=== PATIENT | male | born 1955 | race Caucasian/White ===

== ENCOUNTER 2020-06-20 09:59 | Inpatient (IN) ==
[2020-06-20 10:41] LABS: Basophils # 0.1 10*3/uL (0.0-0.2); Basophils % 0.7 % (0.0-0.8); Eosinophils # 0.1 10*3/uL (0.0-0.87); Eosinophils % 0.7 % (0.00-10.9); Hemoglobin 9.9 GM/DL (14.0-18.0); Immature Granulocytes % 0.5 %; Immature Granulocytes Absolute 0.05 #; Lymphocytes # 0.8 10*3/uL (1.4-4.0); Mean Corpuscular Volume 83.8 FL (87-102); Mean Platelet Volume 11.1 FL (9.6-12.0); Neutrophils % 86.1 % (38.7-73.9); Platelet Count 252 T/CUMM (130-400); Red Blood Count 3.94 MC/CUMM (3.8-5.5); Red Cell Distribution Width 21.2 % (9.3-17.3); White Blood Count 10.4 T/CUMM (4-12)
[2020-06-20 10:51] LABS: INR 2.3; PT Patient Result 24.5 SECS (10.5-12.0)
[2020-06-20 11:11] LABS: Albumin 3.2 G/DL (3.4-5.0); Bilirubin,Total 1.9 MG/DL (0.2-1.0); Osmolality,Calculated 311.4 MOS/KG (273-304); Potassium 3.9 MMOL/L (3.5-5.1); Total Protein 7.8 G/DL (6.4-8.2)
[2020-06-20] MEDS ORDERED: GLUCAGON 1 MG VIAL IM PRN (12:10)
[2020-06-20] MEDS ORDERED: DEXTROSE 50% 25 GM/50 ML VIAL IV PRN (12:10)
[2020-06-20] MEDS: FUROSEMIDE 40 MG/4 ML VIAL IV SCH (16:37)
[2020-06-20] MEDS: INSULIN LISPRO 100 UNIT/ML SUBCUT SCH (16:37)
[2020-06-20] MEDS: ASPIRIN EC 81 MG TABLET PO SCH (23:30)
[2020-06-20] MEDS: RIVAROXABAN 15 MG TABLET PO SCH (23:30)
[2020-06-21] MEDS: INSULIN LISPRO 100 UNIT/ML SUBCUT SCH ×5 (00:06→22:38)
[2020-06-21 05:49] LABS: Basophils # 0.1 10*3/uL (0.0-0.2); Basophils % 0.8 % (0.0-0.8); Eosinophils # 0.1 10*3/uL (0.0-0.87); Eosinophils % 1.6 % (0.00-10.9); Hematocrit 28.8 VOL% (42.0-52.0); Hemoglobin 8.7 GM/DL (14.0-18.0); Immature Granulocytes % 0.3 %; Immature Granulocytes Absolute 0.03 #; Lymphocytes % 11.3 % (21.2-54.2); Mean Corpuscular HGB Conc 30.2 GM/DL (32-36); Mean Corpuscular Volume 83.5 FL (87-102); Mean Platelet Volume 10.2 FL (9.6-12.0); Monocytes % 5.9 % (1.7-12.7); Neutrophils % 80.1 % (38.7-73.9); Platelet Count 210 T/CUMM (130-400); Red Blood Count 3.45 MC/CUMM (3.8-5.5); White Blood Count 8.7 T/CUMM (4-12)
[2020-06-21 05:54] LABS: INR 2.4; PT Patient Result 25.3 SECS (10.5-12.0); Partial Thromboplastin Time 55.5 SECS (23.9-33.8)
[2020-06-21 06:10] LABS: Calcium 8.9 MG/DL (8.5-10.1); Osmolality,Calculated 311.2 MOS/KG (273-304); Potassium 3.1 MMOL/L (3.5-5.1); Risk Ratio 2.33; VLDL CHOLESTEROL 14.2 MG/DL
[2020-06-21] MEDS ORDERED: POTASSIUM CHLORIDE 20 MEQ TABLET PO ONE (07:10)
[2020-06-21] MEDS: FUROSEMIDE 40 MG/4 ML VIAL IV SCH ×2 (08:41→16:36)
[2020-06-21] MEDS: metOLazone 5 MG TABLET PO SCH (08:41)
[2020-06-21] MEDS: PANTOPRAZOLE 40 MG TABLET PO SCH (08:41)
[2020-06-21] MEDS ORDERED: POTASSIUM CHLORIDE 20 MEQ TABLET PO SCH (09:00)
[2020-06-21] MEDS ORDERED: MILRINONE 20 MG/100 ML PREMIX IV SCH ×2 (15:30→18:00)
[2020-06-21] MEDS ORDERED: carvediloL 3.125 MG TABLET PO SCH (17:00)
[2020-06-21] MEDS: ASPIRIN EC 81 MG TABLET PO SCH (22:27)
[2020-06-21] MEDS: RIVAROXABAN 15 MG TABLET PO SCH (22:27)
[2020-06-22 05:21] LABS: Basophils # 0.1 10*3/uL (0.0-0.2); Basophils % 0.7 % (0.0-0.8); Eosinophils # 0.1 10*3/uL (0.0-0.87); Eosinophils % 1.3 % (0.00-10.9); Hematocrit 28.3 VOL% (42.0-52.0); Hemoglobin 8.5 GM/DL (14.0-18.0); Immature Granulocytes % 0.4 %; Immature Granulocytes Absolute 0.04 #; Lymphocytes % 10.3 % (21.2-54.2); Mean Platelet Volume 10.1 FL (9.6-12.0); Neutrophils % 80.3 % (38.7-73.9); Platelet Count 209 T/CUMM (130-400); Red Blood Count 3.37 MC/CUMM (3.8-5.5); Red Cell Distribution Width 20.9 % (9.3-17.3); White Blood Count 9.4 T/CUMM (4-12)
[2020-06-22 05:44] LABS: Osmolality,Calculated 312.4 MOS/KG (273-304); Potassium 3.3 MMOL/L (3.5-5.1)
[2020-06-22] MEDS: POTASSIUM CHLORIDE 20 MEQ TABLET PO SCH ×2 (08:56→22:09)
[2020-06-22] MEDS: metOLazone 5 MG TABLET PO SCH (08:56)
[2020-06-22] MEDS: FUROSEMIDE 40 MG/4 ML VIAL IV SCH ×2 (08:56→16:27)
[2020-06-22] MEDS: PANTOPRAZOLE 40 MG TABLET PO SCH (08:56)
[2020-06-22] MEDS: INSULIN LISPRO 100 UNIT/ML SUBCUT SCH ×5 (09:10→22:45)
[2020-06-22] MEDS ORDERED: METOPROLOL SUCCINATE XL 25 MG TABLET PO SCH (12:30)
[2020-06-22] MEDS: ASPIRIN EC 81 MG TABLET PO SCH (22:09)
[2020-06-22] MEDS: RIVAROXABAN 15 MG TABLET PO SCH (22:09)
[2020-06-23 05:34] LABS: Basophils # 0.1 10*3/uL (0.0-0.2); Basophils % 0.7 % (0.0-0.8); Eosinophils # 0.2 10*3/uL (0.0-0.87); Eosinophils % 2.2 % (0.00-10.9); Hematocrit 29.5 VOL% (42.0-52.0); Immature Granulocytes % 0.5 %; Immature Granulocytes Absolute 0.05 #; Lymphocytes # 0.9 10*3/uL (1.4-4.0); Lymphocytes % 8.6 % (21.2-54.2); Mean Corpuscular HGB Conc 30.5 GM/DL (32-36); Mean Corpuscular Volume 81.9 FL (87-102); Mean Platelet Volume 10.5 FL (9.6-12.0); Monocytes % 8.8 % (1.7-12.7); Neutrophils % 79.2 % (38.7-73.9); Platelet Count 197 T/CUMM (130-400); Red Cell Distribution Width 20.9 % (9.3-17.3); White Blood Count 9.9 T/CUMM (4-12)
[2020-06-23 05:44] LABS: Calcium 8.7 MG/DL (8.5-10.1); Osmolality,Calculated 314.4 MOS/KG (273-304); Potassium 3.6 MMOL/L (3.5-5.1)
[2020-06-23 05:47] LABS: Albumin 2.8 G/DL (3.4-5.0); Bilirubin,Direct 0.77 MG/DL (0.0-0.20); Bilirubin,Indirect 0.5 MG/DL (0.0-1.0); Bilirubin,Total 1.3 MG/DL (0.2-1.0); Total Protein 7.3 G/DL (6.4-8.2)
[2020-06-23 06:36] LABS: Hepatitis B Core IgM Quant 0.11 Index; Hepatitis B Surface Ag Quant < 0.10 Index; Hepatitis B Surface Ag Result Non-Reactive (NonReactive); Hepatitis C Virus Ab Quant 0.26 Index; Hepatitis C Virus Ab Result Non-Reactive (NonReactive)
[2020-06-23] MEDS: POTASSIUM CHLORIDE 20 MEQ TABLET PO SCH ×2 (08:25→20:57)
[2020-06-23] MEDS: PANTOPRAZOLE 40 MG TABLET PO SCH (08:25)
[2020-06-23] MEDS: INSULIN LISPRO 100 UNIT/ML SUBCUT SCH ×4 (08:49→20:56)
[2020-06-23] MEDS ORDERED: HEPARIN/NACL 0.9% 2 UNITS/ML 1,000 UNIT/500 ML BAG IV ONE (09:51)
[2020-06-23] MEDS: DOBUTamine 500 MG/250 ML PREMIX IV PRN ×2 (11:09→18:51)
[2020-06-23] MEDS: METOPROLOL SUCCINATE XL 25 MG TABLET PO SCH (12:10)
[2020-06-23] MEDS ORDERED: BENZONATATE 100 MG CAPSULE PO PRN (12:13)
[2020-06-23 15:00] LABS: Hepatitis B Core IgM Quant 0.11 Index; Hepatitis B Surface Ag Quant < 0.10 Index; Hepatitis B Surface Ag Result Non-Reactive (NonReactive); Hepatitis C Virus Ab Quant 0.19 Index; Hepatitis C Virus Ab Result Non-Reactive (NonReactive)
[2020-06-23] MEDS: FUROSEMIDE 40 MG/4 ML VIAL IV SCH (18:00)
[2020-06-23] MEDS: DESITIN 4OZ/NYSTATIN 15 GRAM MIXTURE PASTE TOP SCH ×2 (18:33→22:03)
[2020-06-23] MEDS: ASPIRIN EC 81 MG TABLET PO SCH (20:57)
[2020-06-23] MEDS ORDERED: NON-FORMULARY MEDICATION (Liraglutide [Victoza 3-Pak] 0.6 mg/0.1 mL (18 mg/3 mL) Pen Injec SUBCUT SCH (21:00)
[2020-06-24] MEDS: DOBUTamine 500 MG/250 ML PREMIX IV PRN ×3 (01:55→17:07)
[2020-06-24 06:22] LABS: Basophils % 0.5 % (0.0-0.8); Eosinophils # 0.1 10*3/uL (0.0-0.87); Eosinophils % 0.8 % (0.00-10.9); Hematocrit 26.8 VOL% (42.0-52.0); Immature Granulocytes % 0.5 %; Immature Granulocytes Absolute 0.04 #; Lymphocytes # 0.6 10*3/uL (1.4-4.0); Mean Corpuscular HGB Conc 29.9 GM/DL (32-36); Mean Corpuscular Volume 83.8 FL (87-102); Mean Platelet Volume 10.2 FL (9.6-12.0); Monocytes % 4.3 % (1.7-12.7); Neutrophils % 86.9 % (38.7-73.9); Platelet Count 175 T/CUMM (130-400); Red Cell Distribution Width 21.1 % (9.3-17.3); White Blood Count 8.4 T/CUMM (4-12)
[2020-06-24 06:41] LABS: Albumin 2.6 G/DL (3.4-5.0); Bilirubin,Total 1.3 MG/DL (0.2-1.0); Calcium 8.2 MG/DL (8.5-10.1); Osmolality,Calculated 313.7 MOS/KG (273-304); Potassium 3.8 MMOL/L (3.5-5.1); Total Protein 6.8 G/DL (6.4-8.2)
[2020-06-24] MEDS ORDERED: ETOMIDATE 40 MG/20 ML VIAL IV ONE (06:47)
[2020-06-24] MEDS ORDERED: propofoL 200 MG/20 ML VIAL IV ONE (06:47)
[2020-06-24] MEDS ORDERED: LIDOCAINE 2% 5 ML VIAL ONE (06:47)
[2020-06-24] MEDS ORDERED: MIDAZOLAM 2 MG/2 ML VIAL ONE (06:48)
[2020-06-24] MEDS ORDERED: fentaNYL 100 MCG/2 ML VIAL ONE (06:48)
[2020-06-24] MEDS ORDERED: KETAMINE 500 MG/10 ML VIAL ONE (06:54)
[2020-06-24] MEDS ORDERED: ceFAZolin 1,000 MG VIAL ONE (07:51)
[2020-06-24] MEDS: INSULIN LISPRO 100 UNIT/ML SUBCUT SCH ×4 (07:55→21:26)
[2020-06-24] MEDS ORDERED: ONDANSETRON 4 MG/2 ML VIAL IV PRN (08:26)
[2020-06-24] MEDS: ONDANSETRON 4 MG/2 ML VIAL IV PRN (08:28)
[2020-06-24] MEDS: POTASSIUM CHLORIDE 20 MEQ TABLET PO SCH ×2 (10:06→21:26)
[2020-06-24] MEDS: DESITIN 4OZ/NYSTATIN 15 GRAM MIXTURE PASTE TOP SCH (10:06)
[2020-06-24] MEDS: PANTOPRAZOLE 40 MG TABLET PO SCH (10:06)
[2020-06-24] MEDS: FUROSEMIDE 40 MG/4 ML VIAL IV SCH (10:07)
[2020-06-24] MEDS: METOPROLOL SUCCINATE XL 25 MG TABLET PO SCH (10:07)
[2020-06-24] MEDS ORDERED: ALBUMIN 25% 25 GM/100 ML VIAL IV ONE (10:31)
[2020-06-24] MEDS ORDERED: HEPARIN 10,000 UNIT/10 ML VIAL IV PRN (12:22)
[2020-06-24] MEDS: ASPIRIN EC 81 MG TABLET PO SCH (21:26)
[2020-06-25] MEDS: DOBUTamine 500 MG/250 ML PREMIX IV PRN ×4 (01:39→10:01)
[2020-06-25] MEDS: ONDANSETRON 4 MG/2 ML VIAL IV PRN (02:57)
[2020-06-25] MEDS: DESITIN 4OZ/NYSTATIN 15 GRAM MIXTURE PASTE TOP SCH ×3 (03:01→21:28)
[2020-06-25 04:04] LABS: Basophils % 0.3 % (0.0-0.8); Eosinophils # 0.1 10*3/uL (0.0-0.87); Eosinophils % 1.3 % (0.00-10.9); Hematocrit 25.2 VOL% (42.0-52.0); Hemoglobin 7.7 GM/DL (14.0-18.0); Immature Granulocytes % 0.4 %; Immature Granulocytes Absolute 0.03 #; Lymphocytes # 0.3 10*3/uL (1.4-4.0); Lymphocytes % 4.2 % (21.2-54.2); Mean Corpuscular HGB Conc 30.6 GM/DL (32-36); Mean Corpuscular Volume 83.7 FL (87-102); Mean Platelet Volume 9.9 FL (9.6-12.0); Monocytes % 3.7 % (1.7-12.7); Neutrophils % 90.1 % (38.7-73.9); Platelet Count 144 T/CUMM (130-400); Red Blood Count 3.01 MC/CUMM (3.8-5.5); Red Cell Distribution Width 20.9 % (9.3-17.3); White Blood Count 7.6 T/CUMM (4-12)
[2020-06-25 05:08] LABS: Calcium 8.4 MG/DL (8.5-10.1); Osmolality,Calculated 311.4 MOS/KG (273-304)
[2020-06-25 07:05] LABS: Eosinophils 2 % (0-10); Hypochromasia 2+; Lymphocytes 5 % (20-55); Microcytosis 1+; Segmented Neutrophils 93 % (50-85); Total Cells Counted 100
[2020-06-25 07:06] LABS: Platelet Estimate Adequate
[2020-06-25] MEDS: INSULIN LISPRO 100 UNIT/ML SUBCUT SCH ×4 (08:32→21:25)
[2020-06-25] MEDS: PANTOPRAZOLE 40 MG TABLET PO SCH (08:33)
[2020-06-25] MEDS ORDERED: ALBUMIN 25% 12.5 GM/50 ML VIAL IV ONE ×3 (08:56→17:53)
[2020-06-25] MEDS ORDERED: DOBUTamine 500 MG/250 ML PREMIX IV SCH (14:30)
[2020-06-25] MEDS: NOREPINEPHRINE 8 MG in SODIUM CHLORIDE 0.9% 242 ML IV PRN (19:48)
[2020-06-25] MEDS: ASPIRIN EC 81 MG TABLET PO SCH (21:28)
[2020-06-26 05:12] LABS: Basophils % 0.2 % (0.0-0.8); Eosinophils # 0.1 10*3/uL (0.0-0.87); Eosinophils % 0.6 % (0.00-10.9); Hematocrit 28.8 VOL% (42.0-52.0); Hemoglobin 8.4 GM/DL (14.0-18.0); Immature Granulocytes % 0.6 %; Immature Granulocytes Absolute 0.05 #; Lymphocytes # 0.4 10*3/uL (1.4-4.0); Lymphocytes % 4.4 % (21.2-54.2); Mean Corpuscular HGB Conc 29.2 GM/DL (32-36); Mean Corpuscular Volume 85.5 FL (87-102); Mean Platelet Volume 10.2 FL (9.6-12.0); Monocytes % 3.9 % (1.7-12.7); Neutrophils % 90.3 % (38.7-73.9); Platelet Count 170 T/CUMM (130-400); Red Blood Count 3.37 MC/CUMM (3.8-5.5); Red Cell Distribution Width 21.2 % (9.3-17.3); White Blood Count 9.1 T/CUMM (4-12)
[2020-06-26 05:43] LABS: Albumin 3.1 G/DL (3.4-5.0); Bilirubin,Total 2.3 MG/DL (0.2-1.0); Calcium 8.8 MG/DL (8.5-10.1); Osmolality,Calculated 299.4 MOS/KG (273-304); Potassium 4.6 MMOL/L (3.5-5.1); Total Protein 7.3 G/DL (6.4-8.2)
[2020-06-26] MEDS: INSULIN LISPRO 100 UNIT/ML SUBCUT SCH ×4 (08:22→21:05)
[2020-06-26] MEDS: PANTOPRAZOLE 40 MG TABLET PO SCH (08:22)
[2020-06-26] MEDS: DESITIN 4OZ/NYSTATIN 15 GRAM MIXTURE PASTE TOP SCH ×2 (08:22→21:05)
[2020-06-26] MEDS ORDERED: POLYETHYLENE GLYCOL POWDER 17 GM PACK PO PRN (09:19)
[2020-06-26] MEDS: NOREPINEPHRINE 8 MG in SODIUM CHLORIDE 0.9% 242 ML IV PRN (10:01)
[2020-06-26 10:34] LABS: Eosinophils 1 % (0-10); Lymphocytes 7 % (20-55); Platelet Estimate Normal; Segmented Neutrophils 88 % (50-85); Total Cells Counted 100
[2020-06-26 10:37] LABS: Anisocytosis Slight
[2020-06-26] MEDS: RIVAROXABAN 15 MG TABLET PO SCH (21:02)
[2020-06-26] MEDS: ASPIRIN EC 81 MG TABLET PO SCH (21:03)
[2020-06-27] MEDS: NOREPINEPHRINE 8 MG in SODIUM CHLORIDE 0.9% 242 ML IV PRN ×2 (01:07→13:01)
[2020-06-27 04:29] LABS: Basophils % 0.3 % (0.0-0.8); Eosinophils # 0.1 10*3/uL (0.0-0.87); Eosinophils % 0.6 % (0.00-10.9); Hematocrit 30.4 VOL% (42.0-52.0); Hemoglobin 8.9 GM/DL (14.0-18.0); Immature Granulocytes % 0.6 %; Immature Granulocytes Absolute 0.05 #; Lymphocytes # 0.7 10*3/uL (1.4-4.0); Lymphocytes % 8.2 % (21.2-54.2); Mean Corpuscular HGB Conc 29.3 GM/DL (32-36); Mean Corpuscular Volume 86.1 FL (87-102); Mean Platelet Volume 10.7 FL (9.6-12.0); Monocytes % 5.4 % (1.7-12.7); Neutrophils % 84.9 % (38.7-73.9); Platelet Count 181 T/CUMM (130-400); Red Blood Count 3.53 MC/CUMM (3.8-5.5); Red Cell Distribution Width 21.2 % (9.3-17.3); White Blood Count 8.9 T/CUMM (4-12)
[2020-06-27 05:00] LABS: Calcium 8.5 MG/DL (8.5-10.1); Osmolality,Calculated 301.5 MOS/KG (273-304); Potassium 4.9 MMOL/L (3.5-5.1)
[2020-06-27] MEDS: INSULIN LISPRO 100 UNIT/ML SUBCUT SCH ×4 (09:00→20:41)
[2020-06-27] MEDS: PANTOPRAZOLE 40 MG TABLET PO SCH (09:08)
[2020-06-27] MEDS: MIDODRINE 5 MG TABLET PO SCH ×2 (09:08→21:13)
[2020-06-27] MEDS: DESITIN 4OZ/NYSTATIN 15 GRAM MIXTURE PASTE TOP SCH ×2 (09:09→21:19)
[2020-06-27] MEDS ORDERED: ALBUMIN 25% 25 GM/100 ML VIAL IV SCH (15:30)
[2020-06-27] MEDS: RIVAROXABAN 15 MG TABLET PO SCH (21:13)
[2020-06-27] MEDS: ASPIRIN EC 81 MG TABLET PO SCH (21:13)
[2020-06-28] MEDS: NOREPINEPHRINE 8 MG in SODIUM CHLORIDE 0.9% 242 ML IV PRN ×3 (00:42→21:14)
[2020-06-28 05:44] LABS: Basophils % 0.2 % (0.0-0.8); Eosinophils # 0.1 10*3/uL (0.0-0.87); Eosinophils % 0.7 % (0.00-10.9); Hematocrit 28.9 VOL% (42.0-52.0); Hemoglobin 8.8 GM/DL (14.0-18.0); Immature Granulocytes % 0.7 %; Immature Granulocytes Absolute 0.07 #; Lymphocytes # 0.9 10*3/uL (1.4-4.0); Lymphocytes % 9.4 % (21.2-54.2); Mean Corpuscular HGB Conc 30.4 GM/DL (32-36); Mean Platelet Volume 11.2 FL (9.6-12.0); Platelet Count 166 T/CUMM (130-400); Red Cell Distribution Width 20.9 % (9.3-17.3); White Blood Count 9.9 T/CUMM (4-12)
[2020-06-28 06:09] LABS: Albumin 3.2 G/DL (3.4-5.0); Bilirubin,Total 2.2 MG/DL (0.2-1.0); Calcium 8.8 MG/DL (8.5-10.1); Osmolality,Calculated 291.5 MOS/KG (273-304); Potassium 4.8 MMOL/L (3.5-5.1); Total Protein 7.1 G/DL (6.4-8.2)
[2020-06-28] MEDS: INSULIN LISPRO 100 UNIT/ML SUBCUT SCH ×4 (07:20→21:09)
[2020-06-28] MEDS: PANTOPRAZOLE 40 MG TABLET PO SCH (08:15)
[2020-06-28] MEDS: MIDODRINE 5 MG TABLET PO SCH ×3 (08:15→21:07)
[2020-06-28] MEDS: DESITIN 4OZ/NYSTATIN 15 GRAM MIXTURE PASTE TOP SCH ×2 (15:05→21:09)
[2020-06-28] MEDS: ASPIRIN EC 81 MG TABLET PO SCH (21:07)
[2020-06-28] MEDS: RIVAROXABAN 15 MG TABLET PO SCH (21:07)
[2020-06-29] MEDS: NOREPINEPHRINE 8 MG in SODIUM CHLORIDE 0.9% 242 ML IV PRN ×2 (03:56→14:53)
[2020-06-29] MEDS ORDERED: HEPARIN/NACL 0.9% 2 UNITS/ML 1,000 UNIT/500 ML BAG IV ONE (05:14)
[2020-06-29 05:59] LABS: Albumin 3.1 G/DL (3.4-5.0); Bilirubin,Total 2.8 MG/DL (0.2-1.0); Calcium 8.8 MG/DL (8.5-10.1); Osmolality,Calculated 298.5 MOS/KG (273-304); Potassium 4.9 MMOL/L (3.5-5.1); Total Protein 7.1 G/DL (6.4-8.2)
[2020-06-29] MEDS: DIGOXIN 0.5 MG/2 ML AMP IV SCH ×3 (06:53→18:15)
[2020-06-29] MEDS: INSULIN LISPRO 100 UNIT/ML SUBCUT SCH ×4 (07:56→21:45)
[2020-06-29] MEDS: MIDODRINE 5 MG TABLET PO SCH ×3 (09:21→21:45)
[2020-06-29] MEDS: PANTOPRAZOLE 40 MG TABLET PO SCH (09:21)
[2020-06-29] MEDS: FLUDROCORTISONE 0.1 MG TABLET PO SCH ×2 (09:21→21:45)
[2020-06-29] MEDS: DESITIN 4OZ/NYSTATIN 15 GRAM MIXTURE PASTE TOP SCH ×2 (09:22→21:46)
[2020-06-29] MEDS ORDERED: ALBUMIN 25% 12.5 GM/50 ML VIAL IV ONE ×2 (13:23→13:25)
[2020-06-29] MEDS: RIVAROXABAN 15 MG TABLET PO SCH (21:45)
[2020-06-29] MEDS: ASPIRIN EC 81 MG TABLET PO SCH (21:45)
[2020-06-30] MEDS: DIGOXIN 0.5 MG/2 ML AMP IV SCH (00:15)
[2020-06-30 04:42] LABS: Albumin 2.8 G/DL (3.4-5.0); Bilirubin,Total 1.6 MG/DL (0.2-1.0); Calcium 8.4 MG/DL (8.5-10.1); Osmolality,Calculated 295.1 MOS/KG (273-304); Potassium 4.3 MMOL/L (3.5-5.1); Total Protein 6.2 G/DL (6.4-8.2)
[2020-06-30] MEDS: INSULIN LISPRO 100 UNIT/ML SUBCUT SCH ×4 (07:44→21:38)
[2020-06-30] MEDS: DESITIN 4OZ/NYSTATIN 15 GRAM MIXTURE PASTE TOP SCH ×2 (09:56→21:50)
[2020-06-30] MEDS: FLUDROCORTISONE 0.1 MG TABLET PO SCH ×2 (09:56→21:40)
[2020-06-30] MEDS: MIDODRINE 5 MG TABLET PO SCH ×3 (09:56→21:40)
[2020-06-30] MEDS: PANTOPRAZOLE 40 MG TABLET PO SCH (09:56)
[2020-06-30] MEDS: FEBUXOSTAT 80 MG TABLET PO SCH (10:07)
[2020-06-30] MEDS ORDERED: DIGOXIN 0.125 MG TABLET PO ONE (10:30)
[2020-06-30] MEDS ORDERED: MAGNESIUM HYDROXIDE SUSP 30 ML UDCUP PO PRN (15:16)
[2020-06-30] MEDS: RIVAROXABAN 15 MG TABLET PO SCH (21:40)
[2020-06-30] MEDS: ASPIRIN EC 81 MG TABLET PO SCH (21:40)
[2020-07-01 06:12] LABS: Bilirubin,Total 1.5 MG/DL (0.2-1.0); Calcium 8.7 MG/DL (8.5-10.1); Osmolality,Calculated 293.5 MOS/KG (273-304); Potassium 4.5 MMOL/L (3.5-5.1); Total Protein 6.8 G/DL (6.4-8.2)
[2020-07-01] MEDS: INSULIN LISPRO 100 UNIT/ML SUBCUT SCH ×4 (08:45→22:13)
[2020-07-01] MEDS: FEBUXOSTAT 80 MG TABLET PO SCH (13:08)
[2020-07-01] MEDS: PANTOPRAZOLE 40 MG TABLET PO SCH (13:09)
[2020-07-01] MEDS: MIDODRINE 5 MG TABLET PO SCH ×3 (13:09→22:12)
[2020-07-01] MEDS: DESITIN 4OZ/NYSTATIN 15 GRAM MIXTURE PASTE TOP SCH (13:09)
[2020-07-01] MEDS: FLUDROCORTISONE 0.1 MG TABLET PO SCH ×2 (13:09→22:12)
[2020-07-01] MEDS: RIVAROXABAN 15 MG TABLET PO SCH (22:12)
[2020-07-01] MEDS: ASPIRIN EC 81 MG TABLET PO SCH (22:17)
[2020-07-02] MEDS: DESITIN 4OZ/NYSTATIN 15 GRAM MIXTURE PASTE TOP SCH ×3 (03:30→22:00)
[2020-07-02] MEDS: INSULIN LISPRO 100 UNIT/ML SUBCUT SCH ×4 (07:59→21:40)
[2020-07-02] MEDS: FEBUXOSTAT 80 MG TABLET PO SCH (09:48)
[2020-07-02] MEDS: PANTOPRAZOLE 40 MG TABLET PO SCH (09:48)
[2020-07-02] MEDS: MIDODRINE 5 MG TABLET PO SCH ×3 (09:48→21:40)
[2020-07-02] MEDS: FLUDROCORTISONE 0.1 MG TABLET PO SCH ×2 (09:48→21:40)
[2020-07-02] MEDS: ACETAMINOPHEN 325 MG TABLET PO PRN (09:53)
[2020-07-02] MEDS ORDERED: SIMETHICONE CHEW 125 MG TABLET PO PRN (11:41)
[2020-07-02] MEDS: DIGOXIN 0.125 MG TABLET PO SCH (12:38)
[2020-07-02] MEDS: ASPIRIN EC 81 MG TABLET PO SCH (21:40)
[2020-07-02] MEDS: RIVAROXABAN 15 MG TABLET PO SCH (21:40)
[2020-07-03] MEDS ORDERED: ALBUMIN 25% 50 GM/200 ML VIAL IV ONE (08:11)
[2020-07-03] MEDS: INSULIN LISPRO 100 UNIT/ML SUBCUT SCH ×3 (08:31→17:23)
[2020-07-03 08:38] LABS: Albumin 3.1 G/DL (3.4-5.0); Calcium 8.9 MG/DL (8.5-10.1); Osmolality,Calculated 291.2 MOS/KG (273-304); Potassium 4.6 MMOL/L (3.5-5.1)
[2020-07-03 08:39] LABS: Basophils # 0.1 10*3/uL (0.0-0.2); Basophils % 0.7 % (0.0-0.8); Eosinophils # 0.2 10*3/uL (0.0-0.87); Eosinophils % 2.2 % (0.00-10.9); Hemoglobin 8.3 GM/DL (14.0-18.0); Immature Granulocytes % 0.6 %; Immature Granulocytes Absolute 0.05 #; Lymphocytes # 0.5 10*3/uL (1.4-4.0); Mean Corpuscular HGB Conc 29.6 GM/DL (32-36); Mean Corpuscular Volume 86.2 FL (87-102); Mean Platelet Volume 10.4 FL (9.6-12.0); Monocytes % 5.2 % (1.7-12.7); Neutrophils % 85.3 % (38.7-73.9); Platelet Count 149 T/CUMM (130-400); Red Blood Count 3.25 MC/CUMM (3.8-5.5); Red Cell Distribution Width 21.7 % (9.3-17.3); White Blood Count 8.8 T/CUMM (4-12)
[2020-07-03] MEDS: FEBUXOSTAT 80 MG TABLET PO SCH (09:38)
[2020-07-03] MEDS: PANTOPRAZOLE 40 MG TABLET PO SCH (09:38)
[2020-07-03] MEDS: MIDODRINE 5 MG TABLET PO SCH ×3 (09:38→22:01)
[2020-07-03] MEDS: DESITIN 4OZ/NYSTATIN 15 GRAM MIXTURE PASTE TOP SCH ×2 (09:38→22:26)
[2020-07-03] MEDS: FLUDROCORTISONE 0.1 MG TABLET PO SCH ×2 (09:38→22:01)
[2020-07-03 10:32] LABS: Hypochromasia 2+; Microcytosis Slight
[2020-07-03 10:33] LABS: Platelet Estimate Adequate; Polychromasia Slight; Stomatocytes Slight; Target Cells Few
[2020-07-03] MEDS: ACETAMINOPHEN 325 MG TABLET PO PRN (15:00)
[2020-07-03] MEDS: ASPIRIN EC 81 MG TABLET PO SCH (22:01)
[2020-07-03] MEDS: RIVAROXABAN 15 MG TABLET PO SCH (22:01)
[2020-07-04 05:11] LABS: Basophils % 0.1 % (0.0-0.8); Hemoglobin 8.4 GM/DL (14.0-18.0); Immature Granulocytes % 2.5 %; Immature Granulocytes Absolute 0.68 #; Lymphocytes # 0.5 10*3/uL (1.4-4.0); Lymphocytes % 1.8 % (21.2-54.2); Mean Platelet Volume 10.3 FL (9.6-12.0); Monocytes % 2.4 % (1.7-12.7); Neutrophils % 93.2 % (38.7-73.9); Red Blood Count 3.22 MC/CUMM (3.8-5.5); Red Cell Distribution Width 21.8 % (9.3-17.3)
[2020-07-04 05:14] LABS: Platelet Count 115 T/CUMM (130-400); White Blood Count 27.6 T/CUMM (4-12)
[2020-07-04 05:31] LABS: Bilirubin,Total 1.2 MG/DL (0.2-1.0); Calcium 8.6 MG/DL (8.5-10.1); Osmolality,Calculated 293.2 MOS/KG (273-304); Potassium 4.7 MMOL/L (3.5-5.1)
[2020-07-04 05:45] LABS: Hypochromasia 1+; Lymphocytes 1 % (20-55); Microcytosis 1+; Platelet Estimate Decreased; Segmented Neutrophils 96 % (50-85); Total Cells Counted 100
[2020-07-04] MEDS: INSULIN LISPRO 100 UNIT/ML SUBCUT SCH ×5 (07:26→22:00)
[2020-07-04] MEDS ORDERED: ALBUMIN 25% 25 GM/100 ML VIAL IV ONE (10:30)
[2020-07-04 10:50] LABS: Basophils % 0.2 % (0.0-0.8); Hematocrit 27.7 VOL% (42.0-52.0); Hemoglobin 8.1 GM/DL (14.0-18.0); Immature Granulocytes % 0.7 %; Immature Granulocytes Absolute 0.15 #; Lymphocytes # 0.7 10*3/uL (1.4-4.0); Lymphocytes % 3.1 % (21.2-54.2); Mean Corpuscular HGB Conc 29.2 GM/DL (32-36); Mean Corpuscular Volume 88.2 FL (87-102); Monocytes % 2.8 % (1.7-12.7); Neutrophils % 93.2 % (38.7-73.9); Platelet Count 115 T/CUMM (130-400); Red Blood Count 3.14 MC/CUMM (3.8-5.5); Red Cell Distribution Width 21.8 % (9.3-17.3); White Blood Count 22.9 T/CUMM (4-12)
[2020-07-04 11:07] LABS: Band Neutrophils 1 % (0-10); Lymphocytes 3 % (20-55); Segmented Neutrophils 92 % (50-85); Total Cells Counted 100
[2020-07-04 11:08] LABS: Hypochromasia 1+
[2020-07-04 11:09] LABS: Microcytosis 1+
[2020-07-04] MEDS: MIDODRINE 5 MG TABLET PO SCH ×3 (12:19→22:14)
[2020-07-04] MEDS: DIGOXIN 0.125 MG TABLET PO SCH (13:36)
[2020-07-04] MEDS: FLUDROCORTISONE 0.1 MG TABLET PO SCH ×2 (13:36→22:13)
[2020-07-04] MEDS: PANTOPRAZOLE 40 MG TABLET PO SCH (13:36)
[2020-07-04] MEDS: FEBUXOSTAT 80 MG TABLET PO SCH (13:37)
[2020-07-04] MEDS: DESITIN 4OZ/NYSTATIN 15 GRAM MIXTURE PASTE TOP SCH ×2 (13:37→22:00)
[2020-07-04] MEDS: ASPIRIN EC 81 MG TABLET PO SCH (22:13)
[2020-07-04] MEDS: RIVAROXABAN 15 MG TABLET PO SCH (22:14)
[2020-07-04] MEDS: ACETAMINOPHEN 325 MG TABLET PO PRN (22:16)
[2020-07-05 05:33] LABS: Basophils % 0.1 % (0.0-0.8); Eosinophils % 0.2 % (0.00-10.9); Hematocrit 28.2 VOL% (42.0-52.0); Hemoglobin 8.4 GM/DL (14.0-18.0); Immature Granulocytes % 2.7 %; Immature Granulocytes Absolute 0.63 #; Lymphocytes # 0.2 10*3/uL (1.4-4.0); Lymphocytes % 0.9 % (21.2-54.2); Mean Corpuscular HGB Conc 29.8 GM/DL (32-36); Mean Platelet Volume 10.6 FL (9.6-12.0); Monocytes % 1.7 % (1.7-12.7); Neutrophils % 94.4 % (38.7-73.9); Platelet Count 107 T/CUMM (130-400); Red Blood Count 3.24 MC/CUMM (3.8-5.5); Red Cell Distribution Width 22.1 % (9.3-17.3); White Blood Count 23.3 T/CUMM (4-12)
[2020-07-05 05:53] LABS: Calcium 8.7 MG/DL (8.5-10.1); Osmolality,Calculated 286.2 MOS/KG (273-304); Potassium 4.5 MMOL/L (3.5-5.1); Total Protein 6.8 G/DL (6.4-8.2)
[2020-07-05 06:01] LABS: Band Neutrophils 1 % (0-10); Hypochromasia 1+; Lymphocytes 1 % (20-55); Microcytosis Slight; Platelet Estimate Decreased; Segmented Neutrophils 97 % (50-85); Total Cells Counted 100
[2020-07-05 07:57] VITALS: BP 80/38
[2020-07-05] MEDS: MIDODRINE 5 MG TABLET PO SCH ×3 (08:18→20:12)
[2020-07-05] MEDS: PANTOPRAZOLE 40 MG TABLET PO SCH (08:19)
[2020-07-05] MEDS: FEBUXOSTAT 80 MG TABLET PO SCH (08:20)
[2020-07-05] MEDS: DESITIN 4OZ/NYSTATIN 15 GRAM MIXTURE PASTE TOP SCH ×2 (08:20→20:12)
[2020-07-05] MEDS: FLUDROCORTISONE 0.1 MG TABLET PO SCH (08:20)
[2020-07-05] MEDS: INSULIN LISPRO 100 UNIT/ML SUBCUT SCH ×3 (08:21→17:46)
[2020-07-05 09:22] LABS: ABG Base Excess -1.3 MMOL/L (-2.5-2.5); ABG Oxygen Saturation 95.4 % (95-100); ABG PH 7.317 (7.35-7.45); ABG PO2 83.9 MM HG (80-95); ABG TCO2 26.5 MMOL/L (23-27); Allen Test Positive
[2020-07-05] MEDS ORDERED: NOREPINEPHRINE 4 MG/4 ML VIAL IV ONE ×2 (09:53→23:33)
[2020-07-05] MEDS ORDERED: ETOMIDATE 20 MG/10 ML VIAL IV ONE ×2 (10:01→10:08)
[2020-07-05] MEDS: HYDROCORTISONE 100 MG VIAL IV SCH ×2 (10:02→17:46)
[2020-07-05] MEDS: NOREPINEPHRINE 8 MG in SODIUM CHLORIDE 0.9% 242 ML IV PRN ×2 (10:02→23:37)
[2020-07-05] MEDS ORDERED: SUCCINYLCHOLINE 200 MG/10 ML VIAL ONE (10:03)
[2020-07-05] MEDS ORDERED: ALBUTEROL 2.5 MG/3 ML NEB RESP TX PRN (10:03)
[2020-07-05] MEDS ORDERED: MIDAZOLAM 100 MG in SODIUM CHLORIDE 0.9% 80 ML IV PRN (10:11)
[2020-07-05] MEDS ORDERED: INSULIN LISPRO 100 UNIT/ML SUBCUT SCH (10:30)
[2020-07-05] MEDS ORDERED: VANCOMYCIN INJ 2,500 MG in SODIUM CHLORIDE 0.9% 500 ML IV ONE (11:00)
[2020-07-05] MEDS: CEFEPIME 1,000 MG in SODIUM CHLORIDE 0.9% 100 ML IV SCH (11:17)
[2020-07-05 12:11] LABS: ABG Base Excess -3.7 MMOL/L (-2.5-2.5); ABG HCO3 22.2 MMOL/L (20-26); ABG Oxygen Saturation 99.6 % (95-100); ABG PCO2 43.7 MM HG (35-48); ABG PH 7.323 (7.35-7.45); ABG PO2 233.8 MM HG (80-95); ABG TCO2 23.5 MMOL/L (23-27); Allen Test Positive; Pt O2 Delivery Device Ventilator
[2020-07-05] MEDS ORDERED: VANCOMYCIN INJ 1,250 MG in SODIUM CHLORIDE 0.9% 250 ML IV PRN (12:57)
[2020-07-05] MEDS: LACTULOSE 20 GM/30 ML UDCUP PO SCH ×3 (13:59→21:00)
[2020-07-05] MEDS: ASPIRIN EC 81 MG TABLET PO SCH (20:12)
[2020-07-06] MEDS: INSULIN LISPRO 100 UNIT/ML SUBCUT SCH ×4 (00:56→18:09)
[2020-07-06] MEDS: LACTULOSE 20 GM/30 ML UDCUP PO SCH ×6 (02:57→21:11)
[2020-07-06] MEDS: HYDROCORTISONE 100 MG VIAL IV SCH ×3 (02:57→18:03)
[2020-07-06 04:15] LABS: ABG HCO3 21.9 MMOL/L (20-26); ABG Oxygen Saturation 98.1 % (95-100); ABG PCO2 42.1 MM HG (35-48); ABG PH 7.339 (7.35-7.45); ABG TCO2 21.1 MMOL/L (23-27); Allen Test Positive; Pt O2 Delivery Device Ventilator
[2020-07-06 05:42] LABS: Basophils # 0.1 10*3/uL (0.0-0.2); Basophils % 0.2 % (0.0-0.8); Hematocrit 27.3 VOL% (42.0-52.0); Hemoglobin 8.5 GM/DL (14.0-18.0); Immature Granulocytes % 5.6 %; Immature Granulocytes Absolute 1.64 #; Lymphocytes # 0.4 10*3/uL (1.4-4.0); Lymphocytes % 1.4 % (21.2-54.2); Mean Corpuscular HGB Conc 31.1 GM/DL (32-36); Mean Platelet Volume 11.1 FL (9.6-12.0); Monocytes % 1.3 % (1.7-12.7); Neutrophils % 91.5 % (38.7-73.9); Platelet Count 120 T/CUMM (130-400); Red Blood Count 3.25 MC/CUMM (3.8-5.5); Red Cell Distribution Width 21.9 % (9.3-17.3); White Blood Count 29.5 T/CUMM (4-12)
[2020-07-06 05:56] LABS: Calcium 8.6 MG/DL (8.5-10.1); Osmolality,Calculated 294.1 MOS/KG (273-304); Potassium 4.4 MMOL/L (3.5-5.1)
[2020-07-06 06:00] LABS: Albumin 2.7 G/DL (3.4-5.0); Bilirubin,Total 1.8 MG/DL (0.2-1.0); Calcium 8.8 MG/DL (8.5-10.1); Osmolality,Calculated 293.1 MOS/KG (273-304); Potassium 4.3 MMOL/L (3.5-5.1); Total Protein 6.6 G/DL (6.4-8.2)
[2020-07-06 06:10] LABS: Hypochromasia 1+; Lymphocytes 1 % (20-55); Segmented Neutrophils 97 % (50-85); Total Cells Counted 100
[2020-07-06 06:11] LABS: Microcytosis Slight
[2020-07-06] MEDS: MIDODRINE 5 MG TABLET PO SCH ×3 (09:36→21:11)
[2020-07-06] MEDS: DESITIN 4OZ/NYSTATIN 15 GRAM MIXTURE PASTE TOP SCH ×2 (09:37→21:11)
[2020-07-06] MEDS: FEBUXOSTAT 80 MG TABLET PO SCH (09:37)
[2020-07-06] MEDS: DIGOXIN 0.125 MG TABLET PO SCH (09:37)
[2020-07-06] MEDS: PANTOPRAZOLE 40 MG VIAL IV SCH (09:38)
[2020-07-06] MEDS: CEFEPIME 1,000 MG in SODIUM CHLORIDE 0.9% 100 ML IV SCH (09:49)
[2020-07-06] MEDS: HEPARIN 5,000 UNIT/1 ML VIAL SUBCUT SCH ×2 (09:49→18:02)
[2020-07-06] MEDS ORDERED: ALBUMIN 25% 25 GM/100 ML VIAL IV ONE ×2 (14:30)
[2020-07-06] MEDS ORDERED: VANCOMYCIN INJ 1,250 MG in SODIUM CHLORIDE 0.9% 250 ML IV ONE (17:00)
[2020-07-06] MEDS: ASPIRIN CHEW 81 MG TABLET PO SCH (21:11)
[2020-07-07] MEDS: INSULIN LISPRO 100 UNIT/ML SUBCUT SCH ×4 (00:04→18:23)
[2020-07-07] MEDS: HYDROCORTISONE 100 MG VIAL IV SCH ×3 (01:38→18:33)
[2020-07-07] MEDS: LACTULOSE 20 GM/30 ML UDCUP PO SCH ×6 (01:40→21:37)
[2020-07-07] MEDS: HEPARIN 5,000 UNIT/1 ML VIAL SUBCUT SCH ×3 (01:42→18:23)
[2020-07-07 03:28] LABS: Basophils % 0.1 % (0.0-0.8); Hematocrit 26.6 VOL% (42.0-52.0); Immature Granulocytes % 3.7 %; Immature Granulocytes Absolute 1.26 #; Lymphocytes # 0.3 10*3/uL (1.4-4.0); Lymphocytes % 0.9 % (21.2-54.2); Mean Corpuscular HGB Conc 30.1 GM/DL (32-36); Mean Platelet Volume 11.4 FL (9.6-12.0); Monocytes % 2.5 % (1.7-12.7); Neutrophils % 92.8 % (38.7-73.9); Platelet Count 88 T/CUMM (130-400); Red Blood Count 3.13 MC/CUMM (3.8-5.5); Red Cell Distribution Width 22.4 % (9.3-17.3)
[2020-07-07 03:37] LABS: INR 1.7; PT Patient Result 18.5 SECS (10.5-12.0)
[2020-07-07 03:40] LABS: Calcium 8.7 MG/DL (8.5-10.1); Osmolality,Calculated 295.8 MOS/KG (273-304); Potassium 3.7 MMOL/L (3.5-5.1)
[2020-07-07 03:48] LABS: Band Neutrophils 1 % (0-10); Hypochromasia Slight; Nucleated Red Blood Cells 1 (0-5); Platelet Estimate Decreased; Segmented Neutrophils 93 % (50-85); Total Cells Counted 100
[2020-07-07 04:10] LABS: ABG Base Excess -0.4 MMOL/L (-2.5-2.5); ABG HCO3 23.6 MMOL/L (20-26); ABG Oxygen Saturation 98.3 % (95-100); ABG PCO2 35.9 MM HG (35-48); ABG PH 7.436 (7.35-7.45); ABG PO2 113.4 MM HG (80-95); ABG TCO2 24.7 MMOL/L (23-27)
[2020-07-07] MEDS: MIDODRINE 5 MG TABLET PO SCH ×3 (08:25→21:37)
[2020-07-07] MEDS: PANTOPRAZOLE 40 MG VIAL IV SCH (08:25)
[2020-07-07] MEDS: FEBUXOSTAT 80 MG TABLET PO SCH (08:26)
[2020-07-07] MEDS: DESITIN 4OZ/NYSTATIN 15 GRAM MIXTURE PASTE TOP SCH ×2 (08:26→21:37)
[2020-07-07] MEDS: CEFEPIME 1,000 MG in SODIUM CHLORIDE 0.9% 100 ML IV SCH (10:11)
[2020-07-07] MEDS: ASPIRIN CHEW 81 MG TABLET PO SCH (21:36)
[2020-07-08] MEDS: INSULIN LISPRO 100 UNIT/ML SUBCUT SCH ×4 (00:58→18:32)
[2020-07-08] MEDS: LACTULOSE 20 GM/30 ML UDCUP PO SCH ×3 (01:04→09:09)
[2020-07-08] MEDS: HEPARIN 5,000 UNIT/1 ML VIAL SUBCUT SCH ×2 (01:05→09:25)
[2020-07-08] MEDS: HYDROCORTISONE 100 MG VIAL IV SCH ×2 (01:05→09:09)
[2020-07-08 03:57] LABS: ABG Base Excess -1.8 MMOL/L (-2.5-2.5); ABG HCO3 22.9 MMOL/L (20-26); ABG Oxygen Saturation 99.3 % (95-100); ABG PCO2 41.1 MM HG (35-48); ABG PH 7.364 (7.35-7.45); ABG TCO2 21.7 MMOL/L (23-27)
[2020-07-08 05:17] LABS: Basophils % 0.1 % (0.0-0.8); Eosinophils % 0.1 % (0.00-10.9); Hematocrit 27.2 VOL% (42.0-52.0); Hemoglobin 8.4 GM/DL (14.0-18.0); Immature Granulocytes % 2.2 %; Lymphocytes # 0.5 10*3/uL (1.4-4.0); Lymphocytes % 1.7 % (21.2-54.2); Mean Corpuscular HGB Conc 30.9 GM/DL (32-36); Mean Corpuscular Volume 84.5 FL (87-102); Mean Platelet Volume 11.5 FL (9.6-12.0); Monocytes % 4.5 % (1.7-12.7); NRBC # 0.02 10*3/uL; Neutrophils % 91.4 % (38.7-73.9); Platelet Count 67 T/CUMM (130-400); Red Blood Count 3.22 MC/CUMM (3.8-5.5); Red Cell Distribution Width 22.8 % (9.3-17.3); White Blood Count 27.1 T/CUMM (4-12)
[2020-07-08 05:48] LABS: Albumin 2.3 G/DL (3.4-5.0); Bilirubin,Direct 0.72 MG/DL (0.0-0.20); Bilirubin,Indirect 1.6 MG/DL (0.0-1.0); Bilirubin,Total 2.3 MG/DL (0.2-1.0); Calcium 8.9 MG/DL (8.5-10.1); Osmolality,Calculated 304.5 MOS/KG (273-304); Potassium 3.7 MMOL/L (3.5-5.1)
[2020-07-08 06:24] LABS: Anisocytosis 2+; Band Neutrophils 18 % (0-10); Lymphocytes 2 % (20-55); Macrocytosis 1+; Platelet Estimate Decreased; Segmented Neutrophils 73 % (50-85); Smudge Cells Few; Total Cells Counted 100
[2020-07-08 06:25] LABS: Burr Cells Few; Ovalocytes Few; Target Cells Few
[2020-07-08] MEDS: PANTOPRAZOLE 40 MG VIAL IV SCH (08:45)
[2020-07-08] MEDS: MIDODRINE 5 MG TABLET PO SCH ×3 (08:45→21:01)
[2020-07-08] MEDS: DIGOXIN 0.125 MG TABLET PO SCH (08:45)
[2020-07-08] MEDS: DESITIN 4OZ/NYSTATIN 15 GRAM MIXTURE PASTE TOP SCH ×2 (08:46→21:31)
[2020-07-08] MEDS: FEBUXOSTAT 80 MG TABLET PO SCH (08:46)
[2020-07-08] MEDS: CEFEPIME 1,000 MG in SODIUM CHLORIDE 0.9% 100 ML IV SCH (09:09)
[2020-07-08] MEDS: ALBUMIN 25% 25 GM/100 ML VIAL IV PRN ×2 (09:12→11:20)
[2020-07-08] MEDS: cefTRIAXone 1,000 MG VIAL IM SCH (11:24)
[2020-07-08 13:07] LABS: INR 1.3; PT Patient Result 14.6 SECS (10.5-12.0)
[2020-07-08 14:20] LABS: Bacteria,Urine Occasional /HPF (Few); Bilirubin,Urine Negative (Negative); Blood, Urine Small mg/dL (Negative); Glucose,Urine (UA) 50 mg/dL (Negative); Hyaline Casts,Urine 34 /LPF (0-3); Ketones,Urine 5 mg/dL (Negative); Mucus,Urine Occasional /LPF (Occasional); Nitrite,Urine Negative (Negative); Protein,Urine >=500 MG/DL; RBC,Urine 6 /HPF (0-4); Squamous Epithelial Cell,Urine Occasional /HPF (0-10); Urine Appearance Slightly Hazy (Clear); Urine Color Amber (Yellow); Urine Urobilinogen < 2.0 EU/DL (0.2-1.0)
[2020-07-08] MEDS: ASPIRIN CHEW 81 MG TABLET PO SCH (21:01)
[2020-07-09] MEDS: INSULIN LISPRO 100 UNIT/ML SUBCUT SCH ×3 (01:28→12:46)
[2020-07-09 04:31] LABS: ABG HCO3 24.2 MMOL/L (20-26); ABG Oxygen Saturation 98.5 % (95-100); ABG PCO2 42.7 MM HG (35-48); ABG PH 7.372 (7.35-7.45); ABG TCO2 25.6 MMOL/L (23-27); Allen Test Positive; Pt O2 Delivery Device Ventilator
[2020-07-09 05:33] LABS: Basophils % 0.2 % (0.0-0.8); Eosinophils # 0.2 10*3/uL (0.0-0.87); Eosinophils % 0.8 % (0.00-10.9); Hematocrit 26.6 VOL% (42.0-52.0); Hemoglobin 7.8 GM/DL (14.0-18.0); Immature Granulocytes % 3.1 %; Immature Granulocytes Absolute 0.56 #; Lymphocytes # 0.9 10*3/uL (1.4-4.0); Lymphocytes % 4.7 % (21.2-54.2); Mean Corpuscular HGB Conc 29.3 GM/DL (32-36); Mean Corpuscular Volume 85.3 FL (87-102); Monocytes % 6.8 % (1.7-12.7); NRBC # 0.05 10*3/uL; Neutrophils % 84.4 % (38.7-73.9); Platelet Count 87 T/CUMM (130-400); Red Blood Count 3.12 MC/CUMM (3.8-5.5); Red Cell Distribution Width 22.9 % (9.3-17.3); White Blood Count 18.4 T/CUMM (4-12)
[2020-07-09 05:53] LABS: Alanine Aminotransferase < 9 U/L (16-61); Albumin 2.4 G/DL (3.4-5.0); Alkaline Phosphatase 137 U/L (45-117); Aspartate Amino Transferase 15 U/L (0-37); Bilirubin,Indirect 0.3 MG/DL (0.0-1.0); Blood Urea Nitrogen 64 MG/DL (7-18); Calcium 8.6 MG/DL (8.5-10.1); Carbon Dioxide 26 MMOL/L (21-32); Estimated Glom Filtration Rate 24 ML/MIN; Glucose 173 MG/DL (74-106); Osmolality,Calculated 296.7 MOS/KG (273-304); Potassium 3.4 MMOL/L (3.5-5.1); Sodium 138 MMOL/L (136-145); Total Protein 6.1 G/DL (6.4-8.2)
[2020-07-09 06:14] LABS: INR 1.3; PT Patient Result 14.3 SECS (10.5-12.0)
[2020-07-09 06:51] LABS: Lymphocytes 8 % (20-55); Segmented Neutrophils 87 % (50-85); Total Cells Counted 100
[2020-07-09 06:52] LABS: Anisocytosis 2+; Hypochromasia 2+; Macrocytosis 2+; Platelet Estimate Decreased
[2020-07-09 06:53] LABS: Ovalocytes 1+
[2020-07-09] MEDS: MIDODRINE 5 MG TABLET PO SCH (08:13)
[2020-07-09] MEDS: PANTOPRAZOLE 40 MG VIAL IV SCH (08:13)
[2020-07-09] MEDS: DESITIN 4OZ/NYSTATIN 15 GRAM MIXTURE PASTE TOP SCH (08:14)
[2020-07-09] MEDS: FEBUXOSTAT 80 MG TABLET PO SCH (08:28)
[2020-07-09] MEDS ORDERED: LACTULOSE 20 GM/30 ML UDCUP PO SCH (09:00)
[2020-07-09 10:00] LABS: ABG Base Excess -0.5 MMOL/L (-2.5-2.5); ABG HCO3 24.8 MMOL/L (20-26); ABG Oxygen Saturation 98.5 % (95-100); ABG PH 7.369 (7.35-7.45); ABG PO2 112.2 MM HG (80-95); ABG TCO2 26.2 MMOL/L (23-27)
[2020-07-09] MEDS: cefTRIAXone 1,000 MG VIAL IM SCH (10:52)
[2020-07-09] MEDS ORDERED: ETOMIDATE 20 MG/10 ML VIAL IV ONE (12:58)
[2020-07-09] MEDS ORDERED: NALOXONE 0.4 MG/ML VIAL ONE (12:59)
[2020-07-10 16:46] LABS: HIT Interpretation Negative (Negative)
== END 2020-07-09 13:40 | disposition expired | DRG 291 ==
LOC: N.ED 09:59 → N.EDINP 12:10 → SUATTDRO 12:10 → N.EDINP 19:56 → N.TELES 20:12 → N.ICU 06-23 10:08 → N.TELES 06-30 16:26 → N.ICU 07-05 08:54
PROVIDERS: ADMIT Emergency Medicine; ATTEND Internal Medicine